=== PATIENT | female | born 2000 | race Two or more races ===

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

== ENCOUNTER 2018-07-19 19:58 | Emergency (ER) | payer OTHER ==
[~2018-07-19] VITALS: Ht 162.6 cm; Wt 61.4 kg
[2018-07-19 22:48] VITALS: BP 122/69
== END 2018-07-19 23:05 | disposition home or self-care (01) ==
LOC: EMS 20:00
DX: M54.5 Low back pain (principal)